=== PATIENT | male | born 1955 | race Hispanic/Latino ===

== ENCOUNTER → 2021-08-29 | Outpatient (CLI) | payer MEDICARE ==
[~2021-08-29] VITALS: Ht 167.6 cm; Wt 107.8 kg
[~2021-08-29] MED LIST: AEC81 PO; AMYL1CAP61 PO; ATOR10 PO; BUME1TAB6 PO; BUME2TAB5 PO; CARV12.511 PO; CHOL100046 PO; CLOP75TA32 PO; ERGO500093 PO; GABA300C PO; ICOS1CAP PO; INSU100I3 SQ; INSU100V37 SQ; ISOS60TA77 PO; LEVO88CA4 PO; LIDOCAINE 1%-EPI 1:100,000 20 ML VIAL IJ SCH; LORA0.5T83 PO; MEMA28CA16 PO; METO5TAB7 PO; MONT-39 PO; NITR0.4T50 SL; OMEP40CA21 PO; POTA-79 PO; PRAM0.5T12 PO; PRAM1TAB7 PO; RANO10003 PO; SACU1TAB7 PO; SERT-440 PO; TAMS-1 PO; TRAM50TA4 PO; TRAZ-185 PO; TURM500C9 PO; UBID1CAP56 PO; VANCOMYCIN 1G/250ML KIT 250 ML IV SCH
[2021-08-29 16:45] LABS: BASOPHILS % (AUTO) 0.5 % (0.0-5.0); EOSINOPHILS % (AUTO) 5.4 % (0.0-8.0); HEMATOCRIT 39.9 % (42-54); LYMPHOCYTES % (AUTO) 14.3 % (21.0-51.0); MEAN CORPUSCULAR HEMOGLOBIN 30.2 pg (27.0-33.0); MEAN CORPUSCULAR HGB CONC 33.3 g/dL (32.0-36.0); MEAN CORPUSCULAR VOLUME 90.5 fL (79-99); MONOCYTES % (AUTO) 6.4 % (3.0-13.0); NEUTROPHILS % (AUTO) 72.9 % (40.0-77.0); PLATELET COUNT (AUTO) 229 K/uL (130-400); RED BLOOD CELL COUNT(AUTO) 4.41 MIL/uL (4.50-6.20); WHITE BLOOD COUNT (AUTO) 14.6 K/uL (4.8-10.8)
[2021-08-29 16:54] LABS: CREATININE 2.1 mg/dL (0.5-1.5); POTASSIUM 4.9 mmol/L (3.5-5.1)
[2021-08-29 16:57] LABS: INR 1.01 (0.85-1.15)
[2021-08-29 16:58] LABS: PARTIAL THROMBOPLASTIN TIME 30.5 SEC (26.3-35.5)
[2021-08-30 09:30] VITALS: BP 149/74
== END | disposition home or self-care (01) ==
LOC: DAH 10:00 → EDSTATUS 15:00
PROVIDERS: ATTEND Otolaryngology Plastic Surgery within the Head & Neck
DX: Z01.818 Encounter for other preprocedural examination (principal); R22.0 Localized swelling, mass and lump, head; Z79.899 Other long term (current) drug therapy; Z79.01 Long term (current) use of anticoagulants
CPT/HCPCS: 36415; 71045; 80048; 85025; 85610; 85730; 87635; 93005; A6260; C9803

== ENCOUNTER 2021-09-28 08:27 | Day surgery (SDC) | payer MEDICARE ==
[2021-09-27 11:31] LABS: BASOPHILS % (AUTO) 0.4 % (0.0-5.0); EOSINOPHILS % (AUTO) 4.2 % (0.0-8.0); HEMATOCRIT 38.5 % (42-54); LYMPHOCYTES % (AUTO) 9.2 % (21.0-51.0); MEAN CORPUSCULAR HEMOGLOBIN 29.1 pg (27.0-33.0); MEAN CORPUSCULAR VOLUME 88.1 fL (79-99); MONOCYTES % (AUTO) 6.4 % (3.0-13.0); NEUTROPHILS % (AUTO) 79.3 % (40.0-77.0); PLATELET COUNT (AUTO) 209 K/uL (130-400); RED BLOOD CELL COUNT(AUTO) 4.37 MIL/uL (4.50-6.20); RED CELL DISTRIBUTION WIDTH 14.1 % (11.0-15.5); WHITE BLOOD COUNT (AUTO) 13.7 K/uL (4.8-10.8)
[2021-09-27 11:40] LABS: POTASSIUM 4.8 mmol/L (3.5-5.1)
[2021-09-27 11:45] LABS: INR 1.04 (0.85-1.15); PROTHROMBIN TIME 11.3 SEC (9.6-11.6)
[2021-09-27 11:46] LABS: PARTIAL THROMBOPLASTIN TIME 29.4 SEC (26.3-35.5)
[2021-09-27 12:46] VITALS: BP 156/78
[2021-09-28] VITALS (16 sets, daily range): BP systolic 108–144; BP diastolic 44–76
[~2021-09-28] VITALS: Ht 167.6 cm; Wt 108.6 kg
[~2021-09-28 08:27] MED LIST changes: -AEC81 PO; -BUME2TAB5 PO; -ERGO500093 PO; -LIDOCAINE 1%-EPI 1:100,000 20 ML VIAL IJ SCH; -LORA0.5T83 PO; -POTA-79 PO; +SACU1TAB PO; -SACU1TAB7 PO; -TRAM50TA4 PO; -VANCOMYCIN 1G/250ML KIT 250 ML IV SCH
[2021-09-28] MEDS ORDERED: 0.9%NACL 1000ML 1,000 ML IV ONE (09:33)
[2021-09-28] MEDS ORDERED: CEFAZOLIN SODIUM 1 GM VIAL ONE (09:33)
[2021-09-28] MEDS ORDERED: LIDOCAINE 1%-EPI 1:100,000 20 ML VIAL IJ ONE (09:49)
[2021-09-28] MEDS ORDERED: BACITRACIN 28.4 GM OINT TP ONE (09:49)
[2021-09-28] MEDS ORDERED: INSULIN HUMULIN R 100 UNIT/ML 3ML ONE ×2 (10:08→10:09)
[2021-09-28] MEDS ORDERED: PROPOFOL 1000 MG/100 ML 100 ML IV ONE (10:09)
[2021-09-28] MEDS ORDERED: KETAMINE 50MG/ML SYRINGE 50 MG/ML DISP.SYRIN IV ONE (10:10)
[2021-09-28] MEDS ORDERED: MIDAZOLAM HCL 1 MG/ML 2ML VIAL ONE (10:12)
[2021-09-28] MEDS ORDERED: FENTANYL CITRATE PF 50 MCG/1 ML 2ML VIAL ONE (10:12)
[2021-09-28] MEDS ORDERED: INSULIN HUMULIN R 100 UNIT/ML 3ML SQ SCH (10:15)
[2021-09-28] MEDS ORDERED: MEPERIDINE-PF 25 MG/ML SYG ONE (12:10)
== END 2021-09-28 13:20 | disposition home or self-care (01) ==
LOC: DAH 08:27
PROVIDERS: ATTEND Otolaryngology Plastic Surgery within the Head & Neck
DX: R22.0 Localized swelling, mass and lump, head (principal); K11.6 Mucocele of salivary gland; E66.01 Morbid (severe) obesity due to excess calories; E11.9 Type 2 diabetes mellitus without complications; Z79.01 Long term (current) use of anticoagulants; Z79.899 Other long term (current) drug therapy; Z86.73 Personal history of transient ischemic attack (TIA), and cerebral infarction without residual deficits; Z85.528 Personal history of other malignant neoplasm of kidney; Z98.890 Other specified postprocedural states; Z79.4 Long term (current) use of insulin
CPT/HCPCS: 36415; 42410; 80048; 82948 ×3; 85025; 85610; 85730; 87635; 88304; A4215; A4216; A4221; A4222; A4223 ×2; A4600; A4606; A4663; A4930; A6260; C9803; J1815 ×2; J2175; J2250; J2704; J3010; J3490 ×2; J7030; 93005; J0690